=== PATIENT | female | born 1955 | race American Indian/Alaskan Native ===

== ENCOUNTER 2018-12-31 17:23 | Emergency (ER) | payer OTHER ==
[2018-12-31 17:57] VITALS: BP 167/107
--- NOTE | 2018-12-31 17:57 | Emergency Department Report ---
Stated Complaint: HARD TO BREATH/RASH Time Seen by Provider: 12/31/18 17:52 - HPI History of Present Illness: This is a 63 y.o. female that presents with a generalized pruitic rash x 3 days. - Exam Vital Signs: Vital Signs 12/31/18 17:53 Temperature 98.1 F Pulse Rate 70 Respiratory 16 Rate Blood Pressure 167/107 O2 Sat by Pulse 98 Oximetry MSE screening note: Focused history and physical exam performed. Due to findings the following was ordered: ACC for further evaluation ED Disposition for MSE Condition: Stable
--- NOTE | 2018-12-31 20:43 | Emergency Department Report ---
ED Rash HPI - HPI Chief Complaint: Skin Rash Stated Complaint: HARD TO BREATH/RASH Time Seen by Provider: 12/31/18 17:52 Duration: 4 Days Location: Other (diffuse) Suspected Cause: Insect Rash Symptoms: Yes Itching, No Facial Swelling, No Tongue/Oral Swelling, No Breathing Difficulties, No Choking Sensation, No Wheezing/Dyspnea, No Peeling, No Blistering, No Fever, No Lightheaded, No Malaise, No Myalgias Severity: mild Other History: Pt is a 63 yo female who presents to the ED with c/o a diffuse rash that began 4 nights ago. She states it does itch. She states she slept at a friends house over the weekend. She denies any fever, SOB, difficulty breathing, or any other sx. ED Review of Systems ROS: Stated complaint: HARD TO BREATH/RASH Other details as noted in HPI Comment: All other systems reviewed and negative ED Past Medical Hx - Past Medical History Previous Medical History?: Yes Hx Hypertension: Yes Additional medical history: herpes - Surgical History Past Surgical History?: Yes Additional Surgical History: hysterectomy - Social History Smoking Status: Never Smoker Substance Use Type: None - Medications Home Medications: Home Medications Medication Instructions Recorded Confirmed Last Taken Type Permethrin 60 gm TP DAILY #1 cream..g. 12/31/18 Unknown Rx Rash Exam - Exam General: Vital signs noted. No distress. Alert and acting appropriately. HEENT: No Periorbital Edema, No Conjuctival Injection, No Chemosis, No Perioral Edema, No Tongue Edema, No Uvular Edema, No Compromised Airway, No Drooling Lungs: Yes Good Air Exchange, No Wheezes, No Ronchi, No Stridor, No Cough, No Labored Respirations, No Retractions, No Use of Accessory Muscles, No Other Abnormal Lung Sounds Heart: Yes Regular, No Murmur Skin: Yes Other (erythematous papular rash present diffusely, no crusting, no blistering ) ED Course Vital Signs 12/31/18 17:53 Temperature 98.1 F Pulse Rate 70 Respiratory 16 Rate Blood Pressure 167/107 O2 Sat by Pulse 98 Oximetry ED Medical Decision Making - Lab Data Vital Signs 12/31/18 12/31/18 17:53 20:55 Temperature 98.1 F Pulse Rate 70 78 Respiratory 16 17 Rate Blood Pressure 167/107 O2 Sat by Pulse 98 99 Oximetry repeat BP: 161/97 - Medical Decision Making Pt is a 63 yo female who presents to the ED with c/o a diffuse rash that began 4 nights ago. She states it does itch. She states she slept at a friends house over the weekend. She denies any fever, SOB, difficulty breathing, or any other sx. Rash appears consistent with bed bugs. Will give pt tx. Advised to either wash all of her things on the highest heat with bleach or to place in sealed trash bag for several days. Advised not to sleep at that friends house again. Discussed with pt to follow up with her PCP in 2-3 days. Return to the ED for any new or worsening symptoms. pt has a hx of HTN, pt states she did not take her BP medication today, advised pt to please take her medication once she gets home, she is on amlodipine. - Differential Diagnosis Bed bugs, tinea, scabies Critical care attestation.: If time is entered above; I have spent that time in minutes in the direct care of this critically ill patient, excluding procedure time. ED Disposition Clinical Impression: Bed bug bite Qualifiers: Encounter type: initial encounter Qualified Code(s): W57.XXXA - Bitten or stung by nonvenomous insect and other nonvenomous arthropods, initial encounter Disposition: DC-01 TO HOME OR SELFCARE Is pt being admited?: No Does the pt Need Aspirin: No Condition: Stable Instructions: Insect Bite or Sting (ED) Additional Instructions: Follow up with your primary care doctor in the next 2-3 days. Use medication as prescribed. Use for 14 days. Will need two treatments. Wash your belongings with hot water and bleach or seal in trashbag for several days or discard completely. Take your blood pressure medication as it is prescribed by your PCP. Prescriptions: Permethrin 60 gm TP DAILY #1 cream..g. Time of Disposition: 20:44 Print Language: NIUEAN
== END 2018-12-31 20:55 | disposition home or self-care (01) ==
LOC: ED 17:23
DX: R21 Rash and other nonspecific skin eruption (principal); I10 Essential (primary) hypertension; Z88.0 Allergy status to penicillin; Z90.710 Acquired absence of both cervix and uterus
CPT/HCPCS: 99282

== ENCOUNTER 2020-06-07 11:20 | Emergency (ER) | payer SELFPAY ==
[2020-06-07 11:33] VITALS: BP 137/88
--- NOTE | 2020-06-07 13:00 | Event Note ---
ED Screening Note Date of service: 06/07/20 Time: 12:57 ED Screening Note: This is a 65-year-old female with a history of hypertension who presents the ED complaining of left-sided pain and tingling sensation that worsened yesterday. Patient states that she is also experienced some bilateral knee to leg swelling with worsening on the left side. This initial assessment/diagnostic orders/clinical plan/treatment(s) is/are subject to change based on patients health status, clinical progression and re- assessment by fellow clinical providers in the ED. Further treatment and workup at subsequent clinical providers discretion. Patient/guardian urged not to elope from the ED as their condition may be serious if not clinically assessed and managed. Initial orders include: Labs, main side eval
[2020-06-07 14:21] LABS: Basophils % (Auto) 0.6 % (0.0-1.8); Eosinophils % (Auto) 1.5 % (0.0-4.3); Lymphocytes % (Auto) 30.1 % (13.4-35.0)
[2020-06-07 14:28] LABS: INR 0.91 (0.87-1.13)
[2020-06-07 14:29] LABS: Partial Thromboplastin Time 23.7 Sec. (24.2-36.6); Thrombin Time 16.9 Sec. (15.1-19.6)
[2020-06-07 14:31] LABS: Eosinophils # (Auto) 0.1 K/mm3 (0.0-0.4); Hematocrit 35.1 % (30.3-42.9); Hemoglobin 11.5 gm/dl (10.1-14.3); Lymphocytes # (Auto) 1.7 K/mm3 (1.2-5.4); Mean Corpuscular HGB Conc 33 % (30-34); Mean Corpuscular Volume 86 fl (79-97); Monocytes # (Auto) 0.4 K/mm3 (0.0-0.8); Platelet Count 217 K/mm3 (140-440); Red Blood Count 4.08 M/mm3 (3.65-5.03); Red Cell Distribution Width 13.6 % (13.2-15.2)
[2020-06-07 14:52] LABS: Alanine Aminotransferase 15 units/L (7-56); Albumin 4.4 g/dL (3.9-5); BUN/Creatinine Ratio 17; Blood Urea Nitrogen 17 mg/dL (7-17); Calcium 10.6 mg/dL (8.4-10.2); Creatine Kinase MB 1.3 ng/mL (0.0-4.0); Hemolysis Index 8
--- NOTE | 2020-06-07 15:58 | Emergency Department Report ---
ED General Adult HPI - General Chief complaint: Neuro Symptoms/Deficit Stated complaint: SWOLLEN LEGS Time Seen by Provider: 06/07/20 15:45 Source: patient Mode of arrival: Ambulatory Limitations: No Limitations - History of Present Illness Initial comments: Ms. Barragan is 65 years old female with history of hypertension currently taking amlodipine and hydrochlorothiazide. Patient presented to the ER complaining of bilateral leg swelling for the last few weeks but for the last few days getting worse. Patient is also complaining of left shoulder pain and bilateral hands pain. Patient stated that symptoms been going on for a while. Patient current ly denying any chest pain, shortness of breath, fever or chills. - Related Data Previous Rx's Medication Instructions Recorded Last Taken Type Permethrin 60 gm TP DAILY #1 cream..g. 12/31/18 Unknown Rx Allergies Allergy/AdvReac Type Severity Reaction Status Date / Time Penicillins Allergy Swelling Verified 06/07/20 11:31 ED Review of Systems ROS: Stated complaint: SWOLLEN LEGS Other details as noted in HPI Comment: All other systems reviewed and negative Constitutional: denies: chills, fever Respiratory: denies: cough, shortness of breath, SOB with exertion Cardiovascular: denies: chest pain, palpitations Gastrointestinal: denies: abdominal pain, nausea, vomiting, diarrhea, constipation, hematemesis, hematochezia Musculoskeletal: denies: back pain Neurological: denies: headache, weakness, numbness, paresthesias, confusion ED Past Medical Hx - Past Medical History Previous Medical History?: Yes Hx Hypertension: Yes Additional medical history: herpes - Surgical History Additional Surgical History: hysterectomy - Social History Smoking Status: Unknown if ever smoked Substance Use Type: None - Medications Home Medications: Home Medications Medication Instructions Recorded Confirmed Last Taken Type Permethrin 60 gm TP DAILY #1 cream..g. 12/31/18 Unknown Rx ED Physical Exam - General Limitations: No Limitations General appearance: alert, in no apparent distress - Head Head exam: Present: atraumatic, normocephalic, normal inspection - Eye Eye exam: Present: normal appearance - ENT ENT exam: Present: normal exam, normal orophraynx, mucous membranes moist - Neck Neck exam: Present: normal inspection, full ROM. Absent: tenderness, meningismus, lymphadenopathy, thyromegaly - Respiratory Respiratory exam: Present: normal lung sounds bilaterally - Cardiovascular Cardiovascular Exam: Present: regular rate, normal rhythm, normal heart sounds - GI/Abdominal GI/Abdominal exam: Present: soft, normal bowel sounds. Absent: distended, tenderness, guarding, rebound, rigid, organomegaly, mass, bruit, pulsatile mass, hernia - Extremities Exam Extremities exam: Present: normal inspection, full ROM, normal capillary refill, pedal edema (1+). Absent: tenderness, joint swelling, calf tenderness - Back Exam Back exam: Present: normal inspection, full ROM. Absent: CVA tenderness (R), CVA tenderness (L), muscle spasm, paraspinal tenderness, vertebral tenderness - Neurological Exam Neurological exam: Present: alert, oriented X3, CN II-XII intact, normal gait, reflexes normal. Absent: motor sensory deficit - Psychiatric Psychiatric exam: Present: normal mood - Skin Skin exam: Present: warm, intact, normal color ED Course Vital Signs 06/07/20 11:32 Temperature 98.3 F Pulse Rate 77 Respiratory 17 Rate Blood Pressure 137/88 O2 Sat by Pulse 100 Oximetry ED Medical Decision Making - Lab Data Result diagrams: 06/07/20 13:26 06/07/20 13:26 - EKG Data -: EKG Interpreted by [place] - Medical Decision Making Ms. Barragan is 65 years old female with history of hypertension currently taking amlodipine and hydrochlorothiazide. Patient presented to the ER complaining of bilateral leg swelling for the last few weeks but for the last few days getting worse. Patient is also complaining of left shoulder pain and bilateral hands pain. Patient stated that symptoms been going on for a while. Patient currently denying any chest pain, shortness of breath, fever or chills. Patient remained asymptomatic in the ER. Labs reviewed and is unremarkable incl uding troponin x2. Patient lower extremity swelling could be from her amlodipine. Patient advised to follow-up with her primary care physician to see if they can switch to another medication. Patient also advised to return to the ER if she develop any new symptoms. Critical care attestation.: If time is entered above; I have spent that time in minutes in the direct care of this critically ill patient, excluding procedure time. ED Disposition Clinical Impression: Leg edema, Acute pain Disposition: DC-01 TO HOME OR SELFCARE Is pt being admited?: No Condition: Stable Instructions: Leg Edema (ED) Referrals: JESÚS GERARDO MD [Primary Care Provider] - 3-5 Days
== END 2020-06-07 17:17 | disposition home or self-care (01) ==
LOC: ED 11:20
DX: R52 Pain, unspecified (principal); R60.0 Localized edema; Z79.899 Other long term (current) drug therapy; Z88.0 Allergy status to penicillin; Z90.710 Acquired absence of both cervix and uterus
CPT/HCPCS: 36415; 80053; 82550; 82553; 83880; 84484; 85025; 85610; 85670; 85730; 93005